=== PATIENT | female | born 1955 | race Caucasian/White ===

== ENCOUNTER 2025-09-21 10:58 | Outpatient (REF) | payer MEDICARE, SELFPAY ==
--- OUTSIDE RECORDS SUMMARY | 2025-09-21 10:00 | XMS_ITS | Encounter Summary ---
Author Organization [employer] Address [address] [place] [address] 7 [place] [address] Care Team Providers Care Photographic Enlarger Operator Name Role Phone Merle Gomes MD Primary Care Provider [phone] Reason for Referral * Imaging (Routine) - Authorized Specialty Diagnoses / Procedures Referred By Ronit crawford Referred To Contact Cardiology Diagnoses Primary hypertension Procedures Transthoracic Echo (TTE) Complete Merle Gomes MD [address] [place] [address] Phone: tel: fax: [address] [address] Phone: tel: fax: Referral ID Status Reason Start Date Expiration Date Visits Requested Visits Authorized [id number] Authorized Perform Procedure 5 09/21/2026 1 1 * Imaging (Routine) - Closed Specialty Diagnoses / Procedures Referred By Ronit crawford Referred To Contact Radiology Diagnoses Breast cancer screening by mammogram Procedures BI Mammogram Screening Tomosynthesis Bilateral Merle Gomes MD [address] [place] [address] Phone: tel: fax: [address] [address] Phone: tel: fax: Referral ID Status Reason Start Date Expiration Date Visits Re quested Visits Authorized [id number] Closed 09/21/2025 09/21/2026 1 1 Encounter Details Date Type Department Care Team ([facility] st Contact Info) Description 09/21/2025 10:00 AM EST Office Visit [facility] MED & PEDS [address] [place] [address] Merle Gomes MD [address] [place] [address] Primary hypertension (Primary Dx); Dietary counseling; Exercise counseling; Female cystocele; Adult-onset obesity; Menopause; Breast cancer screening by mammogram; Vitamin D deficiency; Elevated fasting blood sugar Social History Tobacco Use Types Packs/Day Years Used Date Smoking Tobacco: Never Passive Smoke Exposure: Never Smokeless Tobacco: Never Tobacco Cessation:Counseling Given: Not Answered Depression Answer Date Recorded Patient Health Questionnaire-9 Score 0 09/21/2025 Patient Health Questionnaire-9 Score 0 09/21/2025 Last PHQ-9: Questionnaire Data Not on file 1 11/21/2024 Housing Stability Answer Date Recorded What is your housing situation today? I have cristine valdez 09/21/[address] you li ve. Do you have problems with any of the following? None of the above 09/21/2025 Food Insecurity Answer Date Recorded Within the past 12 months, y ou worried that your food would run out before you got money to buy more: Never True 09/21/2025 Within the past 12 months,th e food you bought just didn't last and you didn't have enough money to get more: Never True Transportation Answer Date Recorded In the past 12 months, has l ack of transportation kept you from medical appts, meetings, work or from getting things needed for daily living? No 09/21/2025 Utilities Answer Date Recorded In the past 12 months, has t he electric, gas, oil or water company threatened to shut off services in your home? No 09/21/2025 Depression Answer Date Recorded Patient Health Questionnaire-2 Score 0 09/21/2025 Internet Access Answer Date Recorded Internet Access Q1 Yes 09/21/2025 Internet Access Q2 Not on file 09/21/2025 Comments No Sex and Gender Information Value Date Recorded Sex Assigned at Female 08/24/2025 9:51 AM EDT Legal Sex Female 9:50 AM EDT Gender Identity Female 08/24/2025 9:51 AM EDT Sexual Orientation Straight 08/24/2025 9: 51 AM EDT documented as of this encounter Last Filed Vital Signs Vital Sign Reading Time Taken Comments Blood Pressure 140/70 09/21/2025 10:24 AM EST Pulse 68 09/21/2025 10:01 AM EST Temperature 36.3 C (97.4 F) 09/21/2025 10:01 AM EST Respiratory Rate 16 09/21/2025 10:01 AM EST Oxygen Saturation - - Inhaled Oxygen Concentration - - Weight 80.3 kg (177 lb) 09/21/2025 10:01 AM EST Height 152.4 cm (5') 09/21/2025 10:01 AM EST Body Mass Index 34.57 09/21/2025 10:01 AM EST documented in this encounter Functional Status * Over the past 2 weeks, how often have you been bothered by any of the following problems? Question Answer Date of Assessment Author Patient Health Questionnaire -2 Score 0 09/21/2025 10:04 AM EST Ann Marie Medina MA * Little interest or pleasure in doing things Answer Date of Assessment Author Not at all 09/21/2025 10:04 AM EST Shannan Orantes MA * Feeling down, depressed, or hopeless Answer Date of Assessment Author Not at all 09/21/2025 10:04 AM Shannan Brito MA * Trouble falling or staying asleep, or sleeping too much Answer Date of Assessment Author Not at all 09/21/2025 10:04 AM Shannan Brito MA * Feeling tired or having little energy Answer Date of Assessment Author Not at all 09/21/2025 10:04 AM Shannan Brito MA * Poor appetite or overeating Answer Date of Assessment Author Not at all 09/21/2025 10:04 AM Shannan Brito MA * Feeling bad about yourself - or that you are a failure or have let yourself or your family down Answer Date of Assessment Author Not at all 09/21/2025 10:04 AM Shannan Brito MA * Trouble concentrating on things, such as reading the newspaper or watching television Answer Date of Assessment Author Not at all 09/21/2025 10:04 AM Shannan Brito MA * Moving or speaking so slowly that other people could have noticed? Or the opposite - being so fidgety or restless that you have been moving around a lot more than usual. Answer Date of Assessment Author Not at all 09/21/2025 10:04 AM Shannan Brito MA * Thoughts that you would be better off or hurting yourself in some way Answer Date of Assessment Author Not at all 09/21/2025 10:04 AM Shannan Brito MA * Patient Health Questionnaire-9 Score Answer Date of Assessment Author 0 09/21/2025 10:04 AM Shannan Brito MA documented as of this encounter Plan of Treatment Upcoming Encounters Date Type Department Care Team ([facility] st Contact Info) Description 12/26/2025 10:15 AM EST Office Visit [facility] MED & PEDS [address] [place] [address] Merle Gomes MD [address] [place] [address] Scheduled Orders Name Type Priority Associated Diagnoses Orde r Schedule Basic Metabolic Panel, Fasting Lab Routine Primary hypertension Dietary counseling Exercise counseling Female cystocele Adult-onset obesity Expected: 09/21/2025 (Approximate), Expires: 09/21/2026 CBC auto differential Lab Routine Primary hypertension Dietary counseling Exercise counseling Female cystocele Adult-onset obesity Expected: 09/21/2025 (Approximate), Expires: 09/21/2026 Hepatic Function Panel Lab Routine Primary hypertension Dietary counseling Exercise counseling Female cystocele Adult-onset obesity Expected: 09/21/2025 (Approximate), Expires: 09/21/2026 Vitamin D, 25-Hydroxy, Total, Immunoassay Lab Routine Primary hypertension Dietary counseling Exercise counseling Female cystocele Adult-onset obesity Vitamin D deficiency Expected: 09/21/2025 (Approximate), Expires: 09/21/2026 Vitamin B12/Folate, Serum Panel Lab Routine Primary hypertension Dietary counseling Exercise counseling Female cystocele Adult-onset obesity Expected: 09/21/2025, Expires: 09/21/2026 TSH W/Reflex to FT4 Lab Routine Primary hypertension Dietary counseling Exercise counseling Female cystocele Adult-onset obesity Expected: 09/21/2025 (Approximate), Expires: 09/21/2026 Lipid Panel, Standard Lab Routine Primary hypertension Dietary counseling Exercise counseling Female cystocele Adult-onset obesity Expected: 09/21/2025 (Approximate), Expires: 09/21/2026 BI Mammogram Screening Tomosynthesis Bilateral Imaging Routine Breast cancer screening by mammogram Expected: 09/21/2025, Expires: 11/21/2026 Albumin, Random Urine W/Creatinine Lab Routine Primary hypertension Expected: 09/21/2025 (Approximate), Expires: 09/21/2026 Transthoracic Echo (TTE) Complete Echocardiography Routine Primary hypertension Expected: 09/21/2025 (Approximate), Expires: 09/21/2027 Hemoglobin A1c Lab Routine Primary hypertension Adult-onset obesity Menopause Elevated fasting blood sugar Expected: 09/21/2025 (Approximate), Expires: 09/21/2026 documented as of this encounter Visit Diagnoses Diagnosis Primary hypertension- Primary Unspecified essential hypertension Dietary counseling Dietary surveillance and counseling Exercise counseling Female cystocele Adult-onset obesity Obesity, unspecified Menopause Symptomatic menopausal or female climacteric states Breast cancer screening by mammogram Vitamin D deficiency Elevated fasting blood sugar Impaired fasting glucose documented in this encounter Additional Health Concerns Assessment Noted Time PHQ-9 Depression Total Score: 0 09/21/20 10:04 AM EST documented as of this encounter Care Teams Photographic Enlarger Operator Relationship Specialty Start Date End Date Merle Gomes MD [address] [place] [address] PCP - General Internal Medicine 09/21/25 documented as of this encounter
--- OUTSIDE RECORDS SUMMARY | 2025-09-21 11:54 | XMS_ITS | Encounter Summary ---
Author Organization [facility] Address [address] [facility] [address] [place] [address] Phone Care Team Providers Care Filter Pulp Washer Name Role Phone Andrei Walden MD Primary Care Provider [phone] Faizan Espinoza MD Unavailable Tamera Cole MD Unavailable Jay Jhaveri MD Unavailable [phone] Andrei Walden MD Unavailable [phone] Alexandro Limon MD Unavailable [phone] Andrei Walden MD Unavailable [phone] Andrei Walden MD Unavailable [phone] Andrei Walden MD Unavailable [phone] Encounter Details Date Type Department Care Team (Late st Contact Info) Description 12/31/2017 Ancillary Orders [facility] Orthopedics & Sports Medicine [address] [place] [address] [phone] Annmarie Amor PA-C [address] [place] [address] Orthopedics & Sports Medicine, [facility] [place] [address] Social History Tobacco Use Types Packs/Day Years Used Date Smoking Tobacco: Former Cigarettes Q uit: 1997 Smokeless Tobacco: Never Alcohol Use Standard Drinks/Week Comments No 0 (1 standard drink = 0.6 oz pur e alcohol) Comments No Sex and Gender Information Value Date Recorded Sex Assigned at Female 11/08/2017 9:38 AM EST Legal Sex Female 9:55 PM EDT Gender Identity Female 11/08/2017 9:38 AM EST Sexual Orientation Straight 11/08/2017 9: 38 AM EST documented as of this encounter Plan of Treatment Not on file documented as of this encounter Visit Diagnoses Not on filedocumented in this encounter Additional Health Concerns Assessment Noted Time PHQ-2 Depression Total Score: 0 12/13/19 18 2:50 PM EST documented as of this encounter Care Teams Filter Pulp Washer Relationship Specialty Start Date End Date Andrei Walden MD [address] [place] [address], [address] [place] [address] [email or web address] PCP - General 08/19/17 Faizan Espinoza MD [address] [place] [address] [email or web address] Historical LMR Provider 08/19/17 11/08/21 Tamera Cole MD [address] [place] [address], [facility] [address] [place] [address] [email or web address] Historical LMR Provider 08/19/17 11/08/21 Jay Jhaveri MD [address] [place] [address], [address] [place] [address] Historical LMR Provider 08/19/17 11/08/21 Andrei Walden MD [address] [place] [address], [address] [address] [email or web address] Historical LMR Provider 08/19/17 Alexandro Limon MD [address] [facility] Floor 1 [place] [address] [email or web address] Historical LMR Provider 08/19/17 11/08/21 Andrei Walden MD [address] [facility], [address] [place] [address] [email or web address] Insurance Assigned Provider 10/07/19 Andrei Walden MD [address] [facility], [address] [place] [address] [email or web address] Insurance Assigned Provider 02/07/22 Andrei Walden MD [address] [facility], [address] [place] [address] [email or web address] Insurance Assigned Provider 02/04/25 documented as of this encounter Additional Source Comments The information contained in this document represents components of the legal health record. It is not the complete legal health record.[facility]
--- OUTSIDE RECORDS SUMMARY | 2025-09-21 11:54 | XMS_ITS | Encounter Summary ---
Author Organization [facility] Address [address] [facility] [address] [place] [address] Phone Care Team Providers Care Supercalender Operator Name Role Phone Andrei Walden MD Primary Care Provider Faizan Espinoza MD Unavailable Tamera Cole MD Unavailable Jay Jhaveri MD Unavailable [phone] Andrei Walden MD Unavailable [phone] Alexandro Limon MD Unavailable [phone] Andrei Walden MD Unavailable [phone] Andrei Walden MD Unavailable Andrei Walden MD Unavailable [phone] Encounter Details Date Type Department Care Team (Late st Contact Info) Description 12/31/2017 Ancillary Orders [address] [phone] Annmarie Amor PA-C [address] [place] [address] Orthopedics & Sports Medicine, [place] [address] [email or web address] Left shoulder pain, unspecified chronicity Social History Tobacco Use Types Packs/Day Years [...] on file documented as of this encounter Results * XR SHOULDER 2 VIEWS (LEFT) (01/04/2018 2:41 PM EST) Narrative Veronica Donnelly Y - 01/04/2018 2:42 PM EST This image report has been auto-finalized and has not been read by a Radiologist. Interpretation has been included in the provider encounter note for this date of service. Annmarie Amor PA-C IMG XR UPPER EXTREMI TY Final Result documented in this encounter Visit Diagnoses Diagnosis Left shoulder pain, unspecified chronicity Left shoulder pain, unspecified chronicity documented in this encounter Additional Health Concerns Assessment Noted Time PHQ-2 Depression Total Score: 0 12/13/19 18 2:50 PM EST documented as of this encounter Care Teams Supercalender Operator Relationship Specialty Start Date End Date Andrei Walden MD [address] [place] [address], [address] [place] [address] [email or web address] PCP - General 08/19/17 Faizan Espinoza MD [address] [place] [address] [email or web address] Historical LMR Provider 08/19/17 11/08/21 Tamera Cole MD [address] [place] [address], [address] [place] [address] Historical LMR Provider 08/19/17 11/08/21 Jay Jhaveri MD [address] [facility], [address] [place] [address] [email or web address] Historical LMR Provider 08/19/17 11/08/21 Andrei Walden MD [address] [facility], [address] [place] [address] [email or web address] Historical LMR Provider 08/19/17 Alexandro Limon MD [address] [facility] Floor 1 [place] [address] [email or web address] Historical LMR Provider 08/19/17 11/08/21 Andrei Walden MD [address] [facility], [address] [place] [address] [email or web address] Insurance Assigned Provider 10/07/19 Andrei Walden MD [address] [place] [address], [address] [place] [address] [email or web address] Insurance Assigned Provider 02/07/22 Andrei Walden MD [address] [facility], [address] [place] [address] Insurance Assigned Provider 02/04/25 documented as of this encounter Additional Source Comments The information contained in this document represents components of the legal health record. It is not the complete legal health record.[facility]
--- OUTSIDE RECORDS SUMMARY | 2025-09-21 11:54 | XMS_ITS | Encounter Summary ---
Author Organization [employer] Address [address] [place] [address] Care Team Providers Care Qualified Craft Worker Electrician Name Role Phone Merle Gomes MD Primary Care Provider [phone] Encounter Details Date Type Department Care Team (Latest Contact Info) Description 09/21/2025 Travel Social History Tobacco Use Types Packs/Day Years Used Date Smoking Tobacco: Never Passive Smoke Exposure: Never Smokeless Tobacco: Never Depression Answer Date Recorded Patient Health Questionnaire-9 [...] AM EDT documented as of this encounter Functional Status * Over the past 2 weeks, how often have you been bothered by any of the following problems? Question Answer Date of Assessment Author Patient Health Questionnaire -2 Score 0 09/21/2025 10:04 AM Ann Marie Patton MA * Little interest or pleasure in doing things Answer Date of Assessment Author Not at all 09/21/2025 10:04 AM Shannan Brito MA * Feeling down, depressed, or hopeless [...] Upcoming Encounters Date Type Department Care Team (Late st Contact Info) Description 12/26/2025 10:15 AM EST Office Visit [facility] MED & PEDS [address] [place] [address] Merle Gomes MD [address] [place] [address] documented as of this encounter Visit Diagnoses Not on filedocumented in this encounter Additional Health Concerns Assessment Noted Time PHQ-9 Depression Total Score: 0 09/21/20 10:04 AM EST documented as of this encounter Care Teams Qualified Craft Worker Electrician Relationship Specialty Start Date End Date Merle Gomes MD [address] [place] [address] PCP - General Internal Medicine 09/21/25 documented as of this encounter
--- OUTSIDE RECORDS SUMMARY | 2025-09-21 11:54 | XMS_ITS | Clinical Summary ---
Author Organization [employer] Address [address] [facility] 7t [place] [address] Care Team Providers Care World Travel Counselor Name Role Phone Merle Gomes MD Primary Care Provider [phone] Allergies Active Allergy Reactions Criticality Noted Date Comments Lactose 09/21/2025 Milk-Related Compounds Unknown 04/01/2017 Other reaction(s): stomach upset Medications lisinopril 40 MG tablet Take 1 tablet (40 mg) by mouth Once per day. 90 tablet 1 5 Active lisinopril 40 MG tablet Take 40 mg by mouth Once per day. 5 025 Discontinued(Re order (will not trigger notification to Pharmacy)) Active Problems Problem Noted Date Diagnosed Date Female cystocele 09/21/2025 Adult-onset obesity 09/21/2025 Hypertension 09/21/2025 Encounters Date Type Department Care Team Description 09/21/2025 10:00 AM EST Office Visit [facility] MED & PEDS [address] [place] [address] Merle Gomes MD Primary hypertension (Primary Dx); Dietary counseling; Exercise counseling; Female cystocele; Adult-onset obesity; Menopause; Breast cancer screening by mammogram; Vitamin D deficiency; Elevated fasting blood sugar 09/21/2025 Travel 09/13/2025 Patient Outreach [facility] MEDICINE [address] [place], [place] [phone] Cj Bradshaw MD Pre-visit Planning (Pre visit planning LVM ) from Last 3 Months Social History Tobacco Use Types Packs/Day Years [...] Orientation Straight 08/24/2025 9: 51 AM EDT Last Filed Vital Signs Vital Sign Reading [...] Mass Index 34.57 09/21/2025 10:01 AM EST Plan of Treatment Upcoming Encounters Date Type Department Care Team ([facility] st Contact Info) Description 12/26/2025 10:15 AM EST Office Visit [facility] MED & PEDS [address] [place] [address] Merle Gomes MD [address] [place] [address] Health Maintenance Due Date Last Done Comments CT Colonography 1955 Colonoscopy 1955 Colorectal Cancer Screening 1955 FIT DNA/Cologuard 1955 FIT 1955 FOBT 1955 Lipid Panel 1955 Sigmoidoscopy 1955 Hepatitis C Screening 1973 Mammogram 03/20/2023 03/20/2021, 03/02, 02/08/2018 Influenza Vaccine (#1) 2025 , 08/04/2023, 07/22/2022, Additional history exists COVID-19 Vaccine ( season) 2026 08/10/2025, 09/11/2024, 01/13/2024, Additional history exists Alcohol/Substance Use Screening 09/21/2026 09/21/2025 Depression Screening 09/21/2026 09/21/2025, 09/21/20 25 SDOH Screening 09/21/2026 09/21/2025 Tobacco Screening 09/21/2026 09/21/2025 DTaP/Tdap/Td Vaccines (2 - Td or Tdap) 10/16/2026 10/16/2016, 08/10/2005 Zoster Vaccines Completed 03/21/2023, 08/05/2022 RSV Patients and Patients Aged 60 years or older Completed 01/13/2024 Pneumococcal Vaccine: 50+ Years Completed 02/14/2024, 12/13/2017, 12/04/2015 HIB Vaccines Aged Out No longer eligi ble based on patient's age to complete this topic HPV Vaccines Aged Out No longer eligi ble based on patient's age to complete this topic Hepatitis A Vaccines Aged Out No long er eligible based on patient's age to complete this topic Hepatitis B Vaccines Aged Out No long er eligible based on patient's age to complete this topic IPV Vaccines Aged Out No longer eligi ble based on patient's age to complete this topic Meningococcal B Vaccine Aged Out No l onger eligible based on patient's age to complete this topic Meningococcal Vaccine Aged Out No donna charmaine eligible based on patient's age to complete this topic RSV under 20 months Aged Out No longe r eligible based on patient's age to complete this topic Rotavirus Vaccines Aged Out No longer eligible based on patient's age to complete this topic Insurance MEDICARE Member Subscriber Plan / Payer (Ef fective 2025-Present) Name:Juana De León Member ID:[id number] Relation to Subscriber:Self Name:Juana De León Subscriber ID:[id number] Payer ID:STATE Group ID:Not on file Type:Medicare Address: [facility] [address] [address] [facility] MEDEX MEDICARE SUPPLEMENT Care Teams World Travel Counselor Relationship Specialty Start Date End Date Merle Gomes MD [address] [facility] [place] [address] PCP - General Internal Medicine 09/21/25
--- OUTSIDE RECORDS SUMMARY | 2025-09-21 11:55 | XMS_ITS | Encounter Summary ---
Author Organization [facility] Address [address] [facility] [address] [place] [address] Phone Care Team Providers Care Outreach Coordinator Name Role Phone Andrei Walden MD Primary Care Provider [phone] Faizan Espinoza MD Unavailable Tamera Cole MD Unavailable [phone] Jay Jhaveri MD Unavailable [phone] Andrei Walden MD Unavailable [phone] Alexandro Limon MD Unavailable [phone] Andrei Walden MD Unavailable [phone] Andrei Walden MD Unavailable [phone] Andrei Walden MD Unavailable [phone] Encounter Details Date Type Department Care Team (Late st Contact Info) Description 04/04/2018 Ancillary Orders [address] [id number] Annmarie Amor PA-C [address] [place] [address] Orthopedics & Sports Medicine, [place] [address] [email or web address] Left shoulder pain, unspecified chronicity Social History [...] Results * XR SHOULDER 2 VIEWS (LEFT) (04/12/2018 4:02 PM EDT) Narrative Veronica Donnelly Y - 04/12/2018 4:02 PM EDT This image report has been auto-finalized and has not been read by a Radiologist. Interpretation has been included in the provider encounter note for this date of service. us Pravin Medrano DO IMG XR UPPER EXTREMITY Fay l Result documented in this encounter Visit Diagnoses Diagnosis Left shoulder pain, unspecified chronicity Left shoulder pain, unspecified chronicity documented in this encounter Additional Health Concerns Assessment Noted Time PHQ-2 Depression Total Score: 0 12/13/19 18 2:50 PM EST documented as of this encounter Care Teams Outreach Coordinator Relationship Specialty Start Date End Date Andrei Walden MD [address] [place] [address], [address] [place] [address] [email or web address] PCP - General 08/19/17 Faizan Espinoza MD [address] [place] [address] [email or web address] Historical LMR Provider 08/19/17 11/08/21 Tamera Cole MD [address] [place] [address], [address] [place] [address] Historical LMR Provider 08/19/17 11/08/21 Jay Jhaveri MD [address] [facility], [address] [place] [address] [email or web address] Historical LMR Provider 08/19/17 11/08/21 Andrei Walden MD [address] [facility], [address] [place] [address] [email or web address] Historical LMR Provider 08/19/17 Alexandro Limon MD [address] [facility] Floor 1 [place] [address] [email or web address] Historical LMR Provider 08/19/17 11/08/21 Andrei Walden MD [address] [facility], [address] [place] [address] [email or web address] Insurance Assigned Provider 10/07/19 Andrei Walden MD [address] [facility], [address] [place] [address] Insurance Assigned Provider 02/07/22 Andrei Walden MD [address] [facility], [address] [place] [address] Insurance Assigned Provider 02/04/25 documented as of this encounter Additional Source Comments The information contained in this document represents components of the legal health record. It is not the complete legal health record.[facility]
--- OUTSIDE RECORDS SUMMARY | 2025-09-21 11:55 | XMS_ITS | Clinical Summary ---
Author Organization [facility] Address [address] [place] [address] Care Team Providers Care Magnaflux Operator Name Role Phone Unknown, Doctor Primary Care Provider Unavailabl e Allergies Active Allergy Reactions Criticality Noted Date Comments Milk Containing Products (Dairy) Unknown 04/01/2017 Other reaction(s): stomach upset Medications ketoconazole (NIZORAL) 2% shampooIndicatio ns:Seborrheic dermatitis Use to wash scalp 3-4x weekly - Apply to damp skin, lather, leave on 5 to 10 minutes, and rinse 120 mL 11 09/03/2022 Active ketoconazole (NIZORAL) 2% creamIndications :Seborrheic dermatitis Apply to face twice daily as needed for redness/sca ling 60 g 5 09/03/2022 Active hydrocortisone 2.5% ointmentIndicati ons:Vulvar itching Apply to itchy areas in groin twice daily as needed for up to 2 weeks at a time 60 g 3 09/03/2022 Active Active Problems No known active problems Social History Tobacco Use Types Packs/Day Years Used Date Smoking Tobacco: Never Assessed Comments Unknown Sex and Gender Information Value Date Recorded Sex Assigned at Female 09/02/2022 1:14 PM EDT Legal Sex Female 2:28 PM EDT Gender Identity Female 09/02/2022 1:14 PM EDT Sexual Orientation Straight 09/02/2022 1: 14 PM EDT Plan of Treatment Health Maintenance Due Date Last Done Comments Cologuard 1955 Colon Cancer Screening 1955 Colonoscopy 1955 FOBT / Fit Test 1955 Sigmoidoscopy 1955 Osteoporosis Screening 2005 Zoster Vaccines (2 of 2) 09/30/2022 08/05/2022 Pneumococcal Vaccine: 50+ Years (3 of 3 - PCV20 or PCV21) 12/13/2022 12/13/2017, 12/04/2015 Mammogram 03/20/2023 03/20/2021, 02/08/2018 Alcohol/Substance Use Screening 11/01/2024 Health Care Proxy Review 11/01/2024 Influenza Vaccine (#1) 2025 , 09/17/2021, 08/11/2019, Additional history exists COVID-19 Vaccine ( season) 2025 08/12/2022, 05/14/2022, 09/17/2021, Additional history exists DTaP,Tdap,and Td Vaccines (2 - Td or Tdap) 10/16/2026 10/16/2016, 08/10/2005 RSV Vaccine (60+ years old and patients) (1 - 1-dose 75+ series) 2030 Hepatitis B Vaccines Aged Out No long er eligible based on patient's age to complete this topic Insurance MEDICARE [facility] Care Teams Magnaflux Operator Relationship Specialty Start Date End Date Unknown, Doctor Unknown Unknown, JASWANT PCP - General 09/03/22
--- OUTSIDE RECORDS SUMMARY | 2025-09-21 11:55 | XMS_ITS | Encounter Summary ---
Author Organization [facility] Address [address] [facility] [address] [place] [address] Phone Care Team Providers Care Cfo Controller Name Role Phone Andrei Walden MD Primary Care Provider Faizan Espinoza MD Unavailable Tamera Cole MD Unavailable Jay Jhaveri MD Unavailable [phone] Andrei Walden MD Unavailable [phone] Alexandro Limon MD Unavailable [phone] Andrei Walden MD Unavailable [phone] Andrei Walden MD Unavailable [phone] Encounter Details Date Type Department Care Team (Late st Contact Info) Description 02/24/2021 Procedure [facility] [address] [place] [address] Social History Tobacco Use Types Packs/Day Years Used Date Smoking Tobacco: Former Cigarettes 2 30 1 968 - 1997 Smokeless Tobacco: Never Alcohol Use Standard Drinks/Week Comments No 0 (1 standard drink = 0.6 oz pur e alcohol) Child or Family Care Answer Date Record ed Do you have problems with on e of the following making it difficult for you to work, study, or receive health care? No 07/28/2019 Education Answer Date Recorded Are you interested in help w ith more adult education (for example, completing high school, GED, job training, learning the Portuguese language, technical skills, or developing parenting skills)? No 07/28/2019 Are you concerned about learning? Not on file 07/28/2019 Not on file 07/28/2019 Not on file 07/28/2019 Food Answer Date Recorded Within the past 6 months we worried whether our food would run out before we got money to buy more. Never True 07/28/2019 Within the past 6 months the food we bought just didn't last and we didn't have enough money to get more. Never True 9 Paying for Meds Answer Date Recorded Do you have trouble paying for medicines? No 07/28/2019 Paying Utility Bills Answer Date Record ed Do you have trouble paying your heating or elect ricity bill? No 07/28/2019 Transportation Answer Date Recorded Has the lack of transportati on kept you from medical appointments or from getting medications? No 07/28/2019 Comments No Sex and Gender Information Value [...] Noted Time PHQ-2 Depression Total Score: 0 02/25/20 21 8:36 AM EDT documented as of this encounter Care Teams Cfo Controller Relationship Specialty Start Date End Date Andrei Walden MD [address] [place] [address], [address] [place] [address] PCP - General 08/19/17 Faizan Espinoza MD [address] [place] [address] [email or web address] Historical LMR Provider 08/19/17 11/08/21 Tamera Cole MD [address] [facility], [address] [place] [address] Historical LMR Provider 08/19/17 11/08/21 Jay Jhaveri MD [address] [facility], [address] [place] [address] Historical LMR Provider 08/19/17 11/08/21 Andrei Walden MD [address] [facility], [address] [place] [address] [email or web address] Historical LMR Provider 08/19/17 Alexandro Limon MD [address] [facility] [address] 1 [place] [address] [email or web address] Historical LMR Provider 08/19/17 11/08/21 Andrei Walden MD [address] [facility], [address] [place] [address] [email or web address] Insurance Assigned Provider 02/07/22 Andrei Walden MD [address] [place] [address], [address] [place] [address] [email or web address] Insurance Assigned Provider 02/04/25 documented as of this encounter Additional Source Comments The information contained in this document represents components of the legal health record. It is not the complete legal health record.[facility]
--- OUTSIDE RECORDS SUMMARY | 2025-09-21 11:55 | XMS_ITS | Encounter Summary ---
Author Organization [facility] Address [address] [facility] [address] [place] [address] Phone Care Team Providers Care Magnetic Tape Winder Name Role Phone Andrei Walden MD Primary Care Provider [phone] Faizan Espinoza MD Unavailable Tamera Cole MD Unavailable Jay Jhaveri MD Unavailable [phone] Andrei Walden MD Unavailable [phone] Alexandro Limon MD Unavailable [phone] Andrei Walden MD Unavailable [phone] Andrei Walden MD Unavailable [phone] Andrei Walden MD Unavailable [phone] Encounter Details Date Type Department Care Team (Late st Contact Info) Description 12/06/2017 Ancillary Orders [address] [phone] Annmarie Amor PA-C [address] [place] [address] Orthopedics & Sports Medicine, [place] [address] [email or web address] Left shoulder pain, unspecified chronicity Social History Tobacco Use Types Packs/Day Years Used Date Smoking Tobacco: Former Smokeless Tobacco: Never Alcohol Use Standard Drinks/Week [...] Results * XR SHOULDER 2 VIEWS (LEFT) (12/08/2017 9:32 AM EST) Narrative Ricarda Butcher - 12/08/2017 9:32 AM EST This image report has been auto-finalized and has not been read by a Radiologist. Interpretation has been included in the provider encounter note for this date of service. Annmarie Amor PA-C IMG XR UPPER EXTREMI TY Final Result documented in this encounter Visit Diagnoses Diagnosis Left shoulder pain, unspecified chronicity Left shoulder pain, unspecified chronicity documented in this encounter Care Teams Magnetic Tape Winder Relationship Specialty Start Date End Date Andrei Walden MD [address] [place] [address], [address] [place] [address] [email or web address] PCP - General 08/19/17 Faizan Espinoza MD [address] [place] [address] [email or web address] Historical LMR Provider 08/19/17 11/08/21 Tamera Cole MD [address] [place] [address], [address] [place] [address] [email or web address] Historical LMR Provider 08/19/17 11/08/21 Jay Jhaveri MD [address] [facility], [address] [place] [address] Historical LMR Provider 08/19/17 11/08/21 Andrei Walden MD [address] [facility], [address] [place] [address] Historical LMR Provider 08/19/17 Alexandro Limon MD [address] [facility] [address] 1 [place] [address] [email or web address] Historical LMR Provider 08/19/17 11/08/21 Andrei Walden MD [address] [facility], [address] [place] [address] [email or web address] Insurance Assigned Provider 10/07/19 Andrei Walden MD [address] [facility], [address] [place] [address] Insurance Assigned Provider 02/07/22 Andrei Walden MD [address] [facility], [address] [place] [address] Insurance Assigned Provider 02/04/25 documented as of this encounter Additional Source Comments The information contained in this document represents components of the legal health record. It is not the complete legal health record.[facility]
--- OUTSIDE RECORDS SUMMARY | 2025-09-21 11:55 | XMS_ITS | Encounter Summary ---
Author Organization [facility] Address [address] [facility] [address] [place] [address] Phone Care Team Providers Care Stunt Person Name Role Phone Andrei Walden MD Primary Care Provider [phone] Faizan Espinoza MD Unavailable Tamera Cole MD Unavailable [phone] Jay Jhaveri MD Unavailable [phone] Andrei Walden MD Unavailable [phone] Alexandro Limon MD Unavailable [phone] Andrei Walden MD Unavailable [phone] Andrei Walden MD Unavailable [phone] Adnrei Walden MD Unavailable [phone] Encounter Details Date Type Department Care Team (Late st Contact Info) Description 04/04/2018 [facility] [address] [place] [phone] Annmarie Amor PA-C [address] [place] [address] Orthopedics & Sports Medicine, [facility] [place] [address] Social History Tobacco Use Types [...] documented as of this encounter Care Teams Stunt Person Relationship Specialty Start Date End Date Andrei Walden MD [address] [place] [address], [address] [place] [address] [email or web address] PCP - General 08/19/17 Faizan Espinoza MD [address] [place] [address] [email or web address] Historical LMR Provider 08/19/17 11/08/21 Tamera Cole MD [address] [place] [address], [facility] [address] [place] [address] [email or web address] Historical LMR Provider 08/19/17 11/08/21 Jay Jhaveri MD [address] [place] [address], [address] [place] [address] Historical LMR Provider 08/19/17 11/08/21 Andrei Walden MD [address] [place] [address], [address] [address] [email or web address] Historical LMR Provider 08/19/17 Alexandro Limon MD [address] [facility] [address] 1 [place] [address] [email or web address] Historical LMR Provider 08/19/17 11/08/21 Andrei Walden MD [address] [facility], [address] [place] [address] [email or web address] Insurance Assigned Provider 10/07/19 Andrei Walden MD [address] [facility], [address] [place] [address] [email or web address] Insurance Assigned Provider 02/07/22 Andrei Walden MD [address] [facility], [address] [place] [address] [email or web address] Insurance Assigned Provider 02/04/25 documented as of this encounter Additional Source Comments The information contained in this document represents components of the legal health record. It is not the complete legal health record.[facility]
--- OUTSIDE RECORDS SUMMARY | 2025-09-21 11:55 | XMS_ITS | Clinical Summary ---
Author Organization [facility] Address [address] [facility] [address] [place] [address] Phone Care Team Providers Care Remote Sensing Technologist Name Role Phone Andrei Walden MD Primary Care Provider [phone] Andrei Walden MD Unavailable [phone] Andrei Walden MD Unavailable [phone] Allergies Active Allergy Reactions Criticality Noted Date Comments Milk Containing Products (Dairy) 04/01/2017 Other reaction(s): stomach upset Medications Medication-Free Text Multivitamins daily Active fluorouraciL (EFUDEX) 5 % cream Apply topically 2 (two) times a day. Active lisinopril (PRINIVIL,ZESTRI L) 40 MG tabletIndication s:Essential hypertension Take 1 tablet (40 mg total) by mouth daily. 30 tablet 09/03/20 25 Active lisinopril (PRINIVIL,ZESTRI L) 40 MG tabletIndication s:Essential hypertension TAKE 1 TABLET BY MOUTH EVERY DAY 90 tablet 02/29/20 25 025 Discontin ued(Reord er) Active Problems Problem Noted Date Diagnosed Date Squamous cell skin cancer, face 05/22/2025 02/28/2025 Actinic keratosis of scalp 02/18/2023 Assessment & Plan (02/07/2024 7:13 AM EDT): Managed by dermatology, using 5-fluorouracil Assessment & Plan (02/18/2023 2:58 PM EDT): 5 fluorouracil rx per derm. Essential hypertension 12/13/2017 Assessment & Plan (11/06/2024 11:10 AM EST): Stop hctz, new rx for lisinopril 40mg once daily to pharmacy. Recheck bmp in 1 week. Orders: lisinopril (PRINIVIL,ZESTRIL) 40 MG tablet; Take 1 tablet (40 mg total) by mouth daily. Basic metabolic panel; Future Assessment & Plan (10/19/2024 11:58 AM EST): Due for labs, bp at target. Continue current. Orders: Comprehensive metabolic panel; Future Assessment & Plan (02/07/2024 7:14 AM EDT): Stable, continue current regimen. Assessment & Plan (11/25/2022 8:20 PM EST): Stable, well controlled. continue current regimen. Assessment & Plan (03/01/2021 10:58 PM EDT): Stable, continue current regimen. Family history of skin cancer 12/13/2017 GERD (gastroesophageal reflux disease) 8 Lactose intolerance in adult 12/13/2017 Pelvic organ prolapse quantification stage 3 cys tocele 12/13/2017 Assessment & Plan (04/17/2018 6:00 PM EDT): Well managed with ring with support pessary. Can continue with self-maintenance at home or q3-4 month office visits for exam/cleaning. Assessment & Plan (02/05/2018 9:51 PM EDT): We discussed the pathophysiology of prolapse including cystocele, apical prolapse, and rectocele. Anatomical diagrams were used to explain the changes noted on Juana's exam. We discussed the relationship of prolapse to the bladder/urinary system functioning. We discussed options for management including expectant, pelvic floor PT, trial of a pessary, or surgery. We reviewed the different kinds of pessaries, typical side effects (increase in discharge, spotting), and maintenance. Juana has tried a pessary in the past and felt uncomfortable removing/replacing it herself - we discussed that she can come to the office for pessary visits q3-6 months and avoid having to take the device out herself. Juana is interested in trying a pessary again as she strongly wishes to avoid surgery. Assessment & Plan (01/04/2018 9:56 AM EST): Advised consult with Dr. Cole to review/iimplement treatment for cystocele. She agrees. Palpitations 12/13/2017 Postmenopausal 12/13/2017 Impaired glucose tolerance 12/13/2017 Assessment & Plan (10/19/2024 11:58 AM EST): Check A1c, review result at follow up. Orders: Comprehensive metabolic panel; Future Hemoglobin A1c; Future Assessment & Plan (02/07/2024 7:14 AM EDT): Recheck A1c with next set of labs, continue lifestyle changes. Thyroid disorder 12/13/2017 Varicose vein of leg 12/13/2017 Obesity 12/09/2007 Assessment & Plan (11/25/2022 8:20 PM EST): Working on lifestyle changes. Reassess at followup. Assessment & Plan (03/01/2021 10:57 PM EDT): Continue to work on lifestyle changes to promote weight loss, healthy eating, exercise. Resolved Problems Problem Noted Date Diagnosed Date Resolved Date Urge incontinence 04/17/2018 02/04/2024 Assessment & Plan (04/17/2018 6:01 PM EDT): Reviewed that this will not change appreciably with the pessary in place. Discussed bladder retraining, limitation of caffeine/bladder irritants, and close attention to total daily liquid intake. Collagenous colitis 12/13/2017 08/11/20 Multiparous 12/13/2017 03/01/2021 Right hip pain 12/13/2017 02/04/2024 Encounters Date Type Department Care Team Description 09/03/2025 Refill [facility] [address] [place] [address] Andrei Walden MD Medication Refill 09/03/2025 Refill [facility] [address] [place] [address] Andrei Walden MD Medication Refill 08/29/2025 Telephone [facility] -[facility] [address] [place] [address] Andrei Walden MD Care Coordination ([facility] Out[facility] ) from Last 3 Months Immunizations Immunization Administration Dates Next Due COVID-19 (Pre-08/23) Moderna Vaccine, mRNA, PF 02/02/2021,01/05/2021 INFLUENZA, SPLIT VIRUS, TRIVALENT PF 07/24/2016, 09/11/2008,08/31/2007 INFLUENZA, SPLIT VIRUS, TRIV ALENT W/ PRESERVATIVE IM 10/31/2014,08/01/2013,09/11/2008,08/31 Influenza High-Dose Quadriva lent Preservative Free IM 07/22/2022 Influenza High-Dose Trivalen t Preservative Free IM 09/11/2024 Influenza Quadrivalent Adjuv anted Preservative Free IM 08/04/2023,09/17/2021 Influenza Quadrivalent MDCK Preservative Free IM 07/30/2017 Influenza Quadrivalent w/ Pr eservative IM 07/05/2015 Influenza Recombinant Marion valent Preservative Free IM 08/11/2019 Influenza, Unspecified Formulation 07/24/2016, Pneumococcal conjugate PCV13 12/04/2015 Pneumococcal conjugate PCV20 02/14/2024 Pneumococcal polysaccharide PPSV23 12/13/2017 RSV Vaccine (monovalent, adjuvanted) 01/13/2024 Td (adult),2 Lf Tetanus Toxo id, PF, Adsorbed 08/10/2005 Tdap 10/16/2016 Zoster recombinant 03/21/2023,08/05/2022 Family History Medical History Relation Comments No Known Problems Brother Breast cancer Cousin No Known Problems Father No Known Problems Maternal Aunt No Known Problems Maternal Grandfather No Known Problems Maternal Grandmother No Known Problems Maternal Uncle Hypertension Mother Stroke Mother No Known Problems Paternal Aunt Stroke Paternal Grandfather Stroke Paternal Grandmother No Known Problems Paternal Uncle No Known Problems Sister Relation Status Comments Brother Cousin Father Maternal Aunt Maternal Grandfather Maternal Grandmother Maternal Uncle Mother Paternal Aunt Paternal Grandfather Paternal Grandmother Paternal Uncle Sister Social History Tobacco Use Types Packs/Day Years Used Date Smoking Tobacco: Former Cigarettes 2 30 1 968 - 1998 Smokeless Tobacco: Never Tobacco Cessation:Counseling Given: Not Answered Alcohol Use Standard Drinks/Week Comments No 0 (1 standard drink = 0.6 oz pur e alcohol) Child or Family Care Answer Date Record ed Do you have problems with on e of the following making it difficult for you to work, study, or receive health care? No 07/28/2019 Education Answer Date Recorded Are you interested in more education? Not on johnnie e 02/26/2023 Are you concerned about learning? Not on file 02/26/2023 No 02/26/2023 No 02/26/2023 Food Answer Date Recorded Within the past [...] appointments or from getting medications? No 07/28/2019 Digital Access Answer Date Recorded No 03/29/2023 No 03/29/2023 Reliable internet access at home? Not on file 03/29/2023 Device with a working camera? Not on file Intimate Partner Violence Answer Date R ecorded Denied Basic Needs Not on file 01/28/2024 In the past 12 months have y ou been in a relationship with a person who hurts, threatens, or tries to control you? No 01/28/2024 Worried food would run out Not on file 01/27 In the past 12 months have y ou been in a relationship with a person who hurts, threatens, or tries to control you? No 01/28/2024 Comments No Sex and Gender Information Value Date Recorded Sex Assigned at Female 11/08/2017 9:38 AM EST Legal Sex Female 9:55 PM EDT Gender Identity Female 11/08/2017 9:38 AM EST Sexual Orientation Straight 11/08/2017 9: 38 AM EST Last Filed Vital Signs Vital Sign Reading Time Taken Comments Blood Pressure 124/58 10/19/2024 11:19 AM EST Pulse 76 10/19/2024 11:19 AM EST Temperature 36.3 C (97.3 F) 10/19/2024 11:19 AM EST Respiratory Rate 18 10/29/2017 5:30 PM EST Oxygen Saturation 98% 10/19/2024 11:19 AM EST Inhaled Oxygen Concentration - - Weight 81.8 kg (180 lb 6.4 oz) 10/19/2024 11:19 AM EST Height 153.6 cm (5' 0.47 ) 10/19/2024 11:[address] Body Mass Index 34.68 10/19/2024 11:19 AM EST Plan of Treatment Health Maintenance Due Date Last Done Comments HEPATITIS C SCREENING 1973 COLOGUARD 2000 FIT TEST 2000 FOBT 2000 SIGMOIDOSCOPY 2000 VIRTUAL COLONOSCOPY 2000 MAMMOGRAM 03/20/2023 03/20/2021, 01/30, 08/05/2015 DEPRESSION SCREENING 01/27/2025 01/28/2024 BLOOD PRESSURE 04/19/2025 10/19/2024 INFLUENZA VACCINE (#1) 2025 , 08/04/2023, 07/22/2022, Additional history exists COVID-19 VACCINE ( season) 2025 09/11/2024, 01/13/2024, 08/04/2023, Additional history exists CREATININE LEVEL 10/19/2025 10/19/2024, 11/2023, 11/25/2022, Additional history exists POTASSIUM LEVEL 10/19/2025 10/19/2024, 04/0 11/2023, 11/25/2022, Additional history exists COLONOSCOPY 03/05/2026 04/20/2023, 03/05/2016 COLORECTAL CANCER SCREENING 03/05/2026 Adult Td,Tdap Booster 10/16/2026 10/16/2016, 005 SCREENING FOR DIABETES 10/19/2027 10/19/2024, 2023 LIPID PANEL 11/25/2027 11/25/2022, 07/03, 07/28/2019, Additional history exists OSTEOPOROSIS SCREENING INITIAL (ONE-TIME) Completed 03/20/2021, 02/08/2018 ZOSTER VACCINES Completed 03/21/2023, 08/05/2022 RSV VACCINE Completed 01/13/2024 PNEUMOCOCCAL VACCINES (50+ years) Completed 02/14/2024, 12/13/2017, 12/04/2015 SMOKING STATUS SCREENING (Once After 26 Yrs) Completed 11/06/2024 HEPATITIS A VACCINES Aged Out No long er eligible based on patient's age to complete this topic HIB VACCINES Aged Out No longer eligi ble based on patient's age to complete this topic MENINGOCOCCAL VACCINES (ACWY) Aged Out No longer eligible based on patient's age to complete this topic MENINGOCOCCAL VACCINES (B) Aged Out N o longer eligible based on patient's age to complete this topic Medical Devices Not on file Procedures Procedure Name Priority Date/Time Associated Diagnosis Comments COMPREHENSIVE METABOLIC PANEL (CMP) Routine 10/19/2024 11:55 AM EST Essential hypertension Impaired glucose tolerance COLONOSCOPY FOR RESULT ENTRY ONLY Routine 04/20/2023 LIPID PANEL Routine 11/25/2022 11:03 AM EST Mixed hyperlipidemia BI MAMMOGRAM SCREENING WITH TOMOSYNTHESIS WITH CAD (BILATERAL) Routine 03/20/2021 8:20 AM EDT Initial Medicare annual wellness visit BD DXA AXIAL (SPINE) WITH HIP Routine 03/20/2021 8:09 AM EDT Postmenopausal from Last 3 Months or Most Recently Relevant to Health Maintenance Results * (ABNORMAL) Comprehensive metabolic panel (10/19/2024 11:55 AM EST) SODIUM 142 133 - 146 mmol/L [facility] POTASSIUM 3.2(L) 3.3 - 5.1 mmol/L [facility] CHLORIDE 102 96 - 108 mmol/L [facility] CO2 30 21 - 35 mmol/L [facility] BUN 15 6 - 19 mg/dL [facility] CREATININE 0.70 0.5 - 1.5 mg/dL [facility] GLUCOSE 112(H) 70 - 99 mg/dL [facility] ALBUMIN 4.1 3.9 - 4.8 g/dL [facility] TOTAL PROTEIN 7.2 6.5 - 8.0 g/dL [facility] CALCIUM 9.0 8.4 - 10.3 mg/dL [facility] ALKALINE PHOSPHATASE 77 39 - 117 U/L [facility] TOTAL BILIRUBIN 0.4 0.0 - 1.2 mg/dL [facility] AST 16 0 - 37 U/L [facility] ALT 8 0 - 40 U/L [facility] GLOBULIN 3.1 1 - 4.8 g/dL [facility] EGFR 94 >59 mL/min/1.7 3m2 [facility] Comment:Estimated glomerular filtration rate calculated using the CKD-EPI refit equation. ANION GAP 13 10 - 20 mmol/L [facility] Blood 10/19/2024 11:5 5 AM EST 10/19/2024 12:07 PM EST Andrei Walden MD LAB BLOOD BKR ORDERABLES Final Result Performing Organization Address City/State/[facility] Co de Phone Number [address] [address] * COLONOSCOPY FOR RESULT ENTRY ONLY (04/20/2023) Pathologist [facility] Colonoscopy External us Cj Provider HEALTH MAINTENANCE Final Result * (ABNORMAL) Lipid panel (11/25/2022 11:03 AM EST) HDL 83 mg/dL [facility] Comment: Interpretation <40 mg/dL: Low HDL cholesterol (major risk factor for CHD) Greater than or equal to 60 mg/dL: High HDL cholesterol ( negative risk factor for CHD) HDL - cholesterol is affected by a number of factors, e.g. smoking, excerise, hormones, sex and age. CHOLESTEROL 213 0 - 240 mg/dL [facility] TRIGLYCERIDES 87 30 - 160 mg/dL [facility] LDL 113 50 - 129 mg/dL [facility] Comment: LDL levels in terms of risk for coronary heart disease: <100 mg/dL: Optimal 100-129 mg/dL: Near or above optimal 130-159 mg/dL: Borderline high 160-189 mg/dL: High >190 mg/dL: Very High CARDIAC RISK RATIO 2.6(L) 3.3 - 4.4 C [facility] Blood 11/25/2022 11:0 3 AM EST 11/25/2022 11:13 AM EST us Andrei Walden MD LAB BLOOD BKR ORDERABLES Final Result Performing Organization Address City/State/[facility] Co de Phone Number [address] [phone] * BI MAMMOGRAM SCREENING WITH TOMOSYNTHESIS WITH CAD (BILATERAL) (03/20/2021 8:20 AM EDT) Anatomical Region Laterality Modality Breast Left, Breast Right, Breast Bilateral Bila teral Mammography 03/20/2021 8:57 AM EDT Impressions 03/20/2021 8:58 AM EDT No mammographic change indicative of malignancy. Routine screening is recommended. BI-RADS CATEGORY: 2 - Benign finding. DENSITY: The breast tissue is almost entirely fat. Narrative 03/20/2021 8:58 AM EDT Bilateral full-field digital screening mammography is obtained and read in conjunction with computer-aided detection. Tomosynthesis as well as 2-D C view imaging of both breasts in two planes also obtained. Comparison made to multiple prior, most recent February 08, 2018, and most remote July 15, 2011. No dominant mass, architectural distortion, worrisome asymmetry, or suspicious calcification is identified. No skin or nipple finding of concern is appreciated. Vascular calcification again noted bilaterally, somewhat progressive appearing. Procedure Note Faizan Castano MD - 03/20/2021 Bilateral full-field digital screening mammography is obtained and read inconjunction with computer-aided detection. Tomosynthesis as well as 2-D Cview imaging of both breasts in two planes also obtained. Comparison madeto multiple prior, most recent February 08, 2018, and most remote 2010. No dominant mass, architectural distortion, worrisome asymmetry, orsuspicious calcification is identified. No skin or nipple finding ofconcern is appreciated. Vascular calcification again noted bilaterally,somewhat progressive appearing. IMPRESSION: No mammographic change indicative of malignancy. Routine screening isrecommended. BI-RADS CATEGORY: 2 - Benign finding. DENSITY: The breast tissue is almost entirely fat. Andrei Walden MD IMG MG EXAMS Final Result * BD DXA AXIAL (SPINE) WITH HIP (03/20/2021 8:09 AM EDT) Anatomical Region Laterality Modality Bone Density Bone Density 03/20/2021 8:17 AM EDT Impressions 03/20/2021 8:21 AM EDT Overall normal bone mineral density with no significant change since baseline study of 2017. Narrative 03/20/2021 8:21 AM EDT This is a 65-year-old postmenopausal white female with a nondisclosed perceived height loss. She is not on replacement therapy. Comparison is made to baseline study of February 08, 2018. Evaluation of the lumbar spine and hips was performed and appears to be technically adequate. Total bone mineral density in the L1-L4 vertebral bodies was calculated at 1.058 gm/cm2 with a T score of 0.1. This falls within the WHO classification of normal. Since prior study there is no significant change. Total bone mineral density in the right proximal femur was calculated at 1.040 gm/cm2 with a T-score of 0.8 falling within the WHO classification of normal. Since prior study there is no significant change. Right femoral neck bone mineral density was calculated at 0.833 gm/cm2 with a T-score of -0.1. Total bone mineral density in the left proximal femur was calculated at 0.968 gm/cm2 with a T-score of 0.2 falling within the WHO classification of normal. Since prior study there is no significant change. Bone mineral density in the left femoral neck was calculated at 0.833 gm/cm2 with a T-score of -0.1 Procedure Note Faizan Castano MD - 03/20/2021 This is a 65-year-old postmenopausal white female with a nondisclosedperceived height loss. She is not on replacement therapy. Comparison ismade to baseline study of February 08, 2018. Evaluation of the lumbar spine and hips was performed and appears to betechnically adequate. Total bone mineral density in the L1-L4 vertebral bodies was calculated at1.058 gm/cm2 with a T score of 0.1. This falls within the WHOclassification of normal. Since prior study there is no significantchange. Total bone mineral density in the right proximal femur was calculated at1.040 gm/cm2 with a T-score of 0.8 falling within the WHO classificationof normal. Since prior study there is no significant change. Rightfemoral neck bone mineral density was calculated at 0.833 gm/cm2 with aT-score of -0.1. Total bone mineral density in the left proximal femur was calculated at0.968 gm/cm2 with a T-score of 0.2 falling within the WHO classificationof normal. Since prior study there is no significant change. Bone mineraldensity in the left femoral neck was calculated at 0.833 gm/cm2 with aT-score of -0.1 IMPRESSION: Overall normal bone mineral density with no significant change sincebaseline study of 2017. Andrei Walden MD [facility] BONE DENSITY DEXA Final Result from Last 3 Months or Most Recently Relevant to Health Maintenance Insurance MEDICARE PART A & B [employer] MEDEX SUPPLEMENT MEDICARE PART A & B [employer] MEDEX SUPPLEMENT MEDICARE PART A & B [employer] MEDEX SUPPLEMENT MEDICARE PART A & B [employer] MEDEX SUPPLEMENT MEDICARE PART A & B [employer] MEDEX SUPPLEMENT MEDICARE PART A & B [employer] MEDEX SUPPLEMENT MEDICARE PART A & B [employer] MED[employer] SUPPLEMENT MEDICARE PART A & B [employer] MEDEX SUPPLEMENT MEDICARE PART A & B [employer] MEDEX SUPPLEMENT Care Teams Remote Sensing Technologist Relationship Specialty Start Date End Date Andrei Walden MD [address] [facility] [place] [address] [email or web address] PCP - General 08/19/17 Andrei Walden MD [address] [place] [address], [address] [place] [address] Historical LMR Provider 08/19/17 Andrei Walden MD [address] [place] [address], [address] [place] [address] [email or web address] Insurance Assigned Provider 02/04/25 Additional Source Comments The information contained in this document represents components of the legal health record. It is not the complete legal health record.[facility]
--- OUTSIDE RECORDS SUMMARY | 2025-09-21 11:55 | XMS_ITS | Encounter Summary ---
Author Organization [facility] Address [address] [facility] [address] [place] [address] Phone Care Team Providers Care Sewer Hand Name Role Phone Andrei Walden MD Primary Care Provider [phone] Faizan Espinoza MD Unavailable Tamera Cole MD Unavailable [phone] Jay Jhaveri MD Unavailable Andrei Walden MD Unavailable [phone] Alexandro Limon MD Unavailable [phone] Andrei Walden MD Unavailable [phone] Andrei Walden MD Unavailable [phone] Andrei Walden MD Unavailable [phone] Encounter Details Date Type Department Care Team (Late st Contact Info) Description 12/06/2017 Ancillary Orders [facility] Medicine [address] [place] [address] [phone] Annmarie Amor PA-C [address] [place] [address] Orthopedics & Sports Medicine, [facility] [place] [address] Social History Tobacco Use Types [...] Diagnoses Not on filedocumented in this encounter Care Teams Sewer Hand Relationship Specialty Start Date End Date Andrei Walden MD [address] [facility] [place] [address] [email or web address] PCP - General 08/19/17 Faizan Espinoza MD [address] [place] [id number] [email or web address] Historical LMR Provider 08/19/17 11/08/21 Tamera Cloe MD [address] [place] [address], [facility] [address] [place] [address] [email or web address] Historical LMR Provider 08/19/17 11/08/21 Jay Jhaveri MD [address] [place] [address], [address] [place] [address] [email or web address] Historical LMR Provider 08/19/17 11/08/21 Andrei Walden MD [address] [place] [address], [address] [place] [address] [email or web address] Historical LMR Provider 08/19/17 Alexandro Limon MD [address] [facility] [address] [place] [address] [email or web address] Historical LMR Provider 08/19/17 11/08/21 Andrei Walden MD [address] [facility] [place] [address] [email or web address] Insurance Assigned Provider 10/07/19 Andrei Walden MD [address] [facility] [place] [address] [email or web address] Insurance Assigned Provider 02/07/22 Andrei Walden MD [address] [facility] [place] [address] [email or web address] Insurance Assigned Provider 02/04/25 documented as of this encounter Additional Source Comments The information contained in this document represents components of the legal health record. It is not the complete legal health record.[facility]
[2025-09-21 14:23] LABS: MANUAL DIFF FLAG NO
[2025-09-21 14:52] LABS: Hematocrit 41.9 % (37.0-47.0); Hemoglobin 12.9 g/dl (12.0-16.0); Imm Gran Abs Auto 0.08 X10*3/uL (0.00-0.03); Imm Gran Pct Auto 0.7 % (0.0-0.4); Lymphocytes Absolute Auto 1.9 X10*3/uL (1.2-4.9); Mean Corpuscular HGB Conc 30.8 g/dl (31.0-35.0); Mean Corpuscular Hemoglobin 28.8 pg (27.0-33.0); Mean Corpuscular Volume 93.5 fL (80.0-98.0); NRBC Abs Auto 0.000 X10*3/uL (0.0-0.012); NRBC Pct Auto 0.0 /100WBC (0.0-0.2); Platelet Count 313 X10*3/uL (160-400); Red Blood Count 4.48 X10*6/uL (4.20-5.50); White Blood Count 11.0 X10*3/uL (4.8-10.8)
[2025-09-21 15:09] LABS: Alanine Aminotransferase 12 U/L (0-31); Albumin Level 4.4 g/dL (3.5-5.0); Alkaline Phosphatase 92 U/L (39-117); Anion Gap 11 (12-20); Aspartate Amino Transferase 22 U/L (5-31); Blood Urea Nitrogen 14 mg/dL (9-16); Calcium 9.5 mg/dL (8.4-10.2); Carbon Dioxide 28 mmol/L (22-29); Chloride 106 mmol/L (96-108); Cholesterol 228 mg/dL (<200); Estimated Glomerular Filt Rate > 60; HDL Cholesterol 93 mg/dL (>40); Potassium 4.1 mmol/L (3.3-5.1); Sodium 141 mmol/L (135-145); Total Protein 7.5 g/dL (6.5-8.0); Triglycerides 74 mg/dL (<150)
[2025-09-21 15:21] LABS: Folate 11.0 ng/mL (> or = 4.0); Vitamin B12 217 pg/mL (200-900)
[2025-09-21 16:26] LABS: Free T4 (Free Thyroxine) 1.04 ng/dL (0.71-1.85)
[2025-09-21 19:01] LABS: Microalbum/Creatinine Ratio Ur 23.1 ug/mg cr (<30)
== END 2025-09-21 10:59 | disposition home or self-care (01) ==
LOC: HO.CHCLDS 10:58
PROVIDERS: Visit Provider Pediatrics
DX: I10 Essential (primary) hypertension (principal); Z78.0 Asymptomatic menopausal state; R73.01 Impaired fasting glucose; Z71.3 Dietary counseling and surveillance; Z71.82 Exercise counseling; N81.10 Cystocele, unspecified; E66.9 Obesity, unspecified; E55.9 Vitamin D deficiency, unspecified
CPT/HCPCS: 36415; 80048; 80061; 80076; 82043; 82306; 82570; 82607; 82746; 83036; 84439; 84443; 85025

== ENCOUNTER 2025-10-08 11:42 | Outpatient (REF) | payer MEDICARE, SELFPAY | END 2025-10-08 11:43 | disposition home or self-care (01) | LOC: HO.MAMMO 11:42 | PROVIDERS: Visit Provider Pediatrics | DX: Z12.31 Encounter for screening mammogram for malignant neoplasm of breast (principal) | CPT/HCPCS: 77063; 77067 ==

== ENCOUNTER → 2025-10-08 11:45 | Outpatient (BNV) | payer MEDICARE, SELFPAY | PROVIDERS: Visit Provider Radiology Body Imaging | DX: Z12.31 Encounter for screening mammogram for malignant neoplasm of breast (principal) | CPT/HCPCS: 77063; 77067 ==